=== PATIENT | male | born 1980 | race Caucasian/White ===

== ENCOUNTER 2020-05-19 12:59 | Outpatient (REF) | payer MEDICAID, SELFPAY | END 2020-05-19 13:00 | disposition home or self-care (01) | LOC: HO.LAB 12:59 | PROVIDERS: PCP Family Medicine; Visit Provider Internal Medicine | DX: Z20.828 Contact with and (suspected) exposure to other viral communicable diseases (principal) | CPT/HCPCS: C9803; U0003 ==

== ENCOUNTER 2021-05-30 09:22 | Outpatient (REF) | payer MEDICAID, SELFPAY ==
[2021-05-30 09:44] LABS: Binax Internal Control QC Valid; Binax Lot number: 9864; Binax Now Covid-19 Ag Positive (Negative)
== END 2021-05-30 09:23 | disposition home or self-care (01) ==
LOC: HO.LAB 09:22
PROVIDERS: Visit Provider Internal Medicine
DX: Z20.822 Contact with and (suspected) exposure to COVID-19 (principal)
CPT/HCPCS: 36415; C9803